=== PATIENT | female | born 1990 | race Caucasian/White ===

== ENCOUNTER 2017-04-20 14:03 | Emergency (ER) | payer OTHER ==
[~2017-04-20] VITALS: Ht 175.3 cm; Wt 58.1 kg
[2017-04-20] MEDS ORDERED: BACTRIM DS TAB1 EAC1 ORAL (14:26)
[2017-04-20] MEDS ORDERED: CEPHALEXIN500 MG ORAL (14:26)
[2017-04-20] MEDS ORDERED: Cephalexin 500mg cap ORAL ONE (14:30)
[2017-04-20] MEDS ORDERED: Bactrim DS (160mg/800mg) tab ORAL ONE (14:30)
[2017-04-20 14:31] VITALS: BP 117/68
--- NOTE | 2017-04-20 16:49 | Emergency Room Report ---
History of Present Illness General Chief Complaint: Skin Rash/Abscess Source: Patient Present Illness HPI The patient is a 26-year-old female who denies any medical history presenting for possible infection of the face. She noticed a red bump on the left side of her face 2 days prior which has now grown in size, redness, and pain. It is described as an 8/10 dull ache and worse with touch. She states that she tried to squeeze it but was unable to express any discharge. She denies any known injury to the area. She denies any other rash. She denies other symptoms including fever, chills, sore throat, dizziness, headache, changes in vision, shortness of breath Allergies: Coded Allergies: No Known Allergies (Unverified , 04/20/17) Patient History Past Medical History: see triage record Pertinent Family History: none Reviewed Nursing Documentation: PMH: Agreed, PSxH: Agreed Nursing Documentation-PM Past Medical History: No Stated History Review of Systems All Other Systems: negative except mentioned in HPI Physical Exam Vital Signs Date Time Temp Pulse Resp B/P Pulse Ox O2 Delivery O2 Flow Rate FiO2 04/20/17 14:07 98.4 77 20 132/72 99 Room Air Sp02 EP Interpretation: reviewed, normal General Appearance: no apparent distress, alert, GCS 15, non-toxic Head: normocephalic, atraumatic Eyes: bilateral eye PERRL, bilateral eye normal inspection ENT: hearing grossly normal, normal pharynx, no angioedema, normal voice Neck: full range of motion, supple/symm/no masses Musculoskeletal: back normal, gait/station normal, normal range of motion, non- tender Neurologic: alert, oriented x3, responsive, motor strength/tone normal, sensory intact, speech normal Psychiatric: judgement/insight normal, memory normal, mood/affect normal, no suicidal/homicidal ideation Skin: rash - 2cm in diameter erythema with central scab over the zygomatic process. TTP. No fluctuance. Lymphatic: no adenopathy Medical Decision Making PA Attestation Dr. Hernandez is my supervising physician. Patient management was discussed with my supervising physician Diagnostic Impression: Primary Impression: Abscess ER Course The patient is a 26-year-old female presenting for left-sided facial lesion Ddx considered include but not limited to insect bite, contact dermatitis, eczema, cellulitis, acne, among others PE: afebrile. NAD There is a 2 cm diameter erythematous lesion over the left side rheumatic process. Tender to palpation. Edematous. No fluctuance. No lymphad. The patient will be treated with prescriptions for Keflex and Bactrim. She is to follow up with primary doctor. ER precautions are given Last Vital Signs Date Time Temp Pulse Resp B/P Pulse Ox O2 Delivery O2 Flow Rate FiO2 04/20/17 14:31 72 16 117/68 97 Room Air 04/20/17 14:31 98.2 Status: improved Disposition: HOME, SELF-CARE Condition: Improved Scripts Trimethoprim/Sulfamethoxazole 160/800* (BACTRIM DS TABLET*) 1 Each Tablet 1 TAB ORAL TWICE A DAY, #14 TAB Prov: DEVIN VIVAS 04/20/17 Cephalexin* (KEFLEX*) 500 Mg Capsule 500 MG ORAL EVERY 12 HOURS, #14 CAP 0 Refills Prov: DEVIN VIVAS 04/20/17 Referrals: NON PHYSICIAN (PCP) Patient Instructions: Abscess, Rash Additional Instructions: I discussed my findings with the patient. All questions and concerns have been answered. Treatment and medication compliance have been addressed. I advised the patient that they need to follow up with PMD in 3-5 days. Return to ED if symptoms worsen, new symptoms arise, or if needed for any reason. Patient verbalized understanding of discharge instructions. DEVIN VIVAS Apr 20, 2017 16:49
== END 2017-04-20 14:35 | disposition home or self-care (01) ==
LOC: EMR 14:24
DX: L02.01 Cutaneous abscess of face (principal)
CPT/HCPCS: 99284